=== PATIENT | male | born 1980 | race American Indian/Alaskan Native ===

== ENCOUNTER 2017-08-15 00:44 | Emergency (ER) | payer SELFPAY ==
[2017-08-15] MEDS ORDERED: NACL 0.9% 1000 ML 1,000 ML IV ONE (01:00)
[2017-08-15] MEDS ORDERED: ASPIRIN PO ONE (01:00)
--- NOTE | 2017-08-15 01:06 | Emergency Department Report ---
ED Chest Pain HPI - General Stated Complaint: POSS STEMI Time Seen by Provider: 08/15/17 01:00 - History of Present Illness Initial Comments: Patient is a 36-year-old male with past medical history of hypertension. Patient brought by EMS after he started to have left-sided chest pain while he was smoking weed per patient report. EMS stated that patient was very diaphoretic when examined. With the low blood pressure. Patient rated his chest pain as 5 out of 10 he stated that is getting better now. Pain is a heaviness and tightness. Associated with shortness of breath. MD Complaint: chest pain -: Sudden - Related Data Allergies Allergy/AdvReac Type Severity Reaction Status Date / Time No Known Allergies Allergy Unverified 08/15/17 01:11 Heart Score - HEART Score History: Moderately suspicious EKG: Non-specific Age: < 45 Risk factors: 1-2 risk factors Troponin: < normal limit HEART Score: 3 - Critical Actions Critical Actions: 0-3 pts:0.9-1.7%risk of adverse cardiac event.Candidate for discharge ED Review of Systems ROS: Stated complaint: POSS STEMI Other details as noted in HPI Comment: All other systems reviewed and negative Constitutional: denies: chills, fever Respiratory: denies: cough, orthopnea, shortness of breath, SOB with exertion, SOB at rest Cardiovascular: chest pain. denies: palpitations, dyspnea on exertion, orthopnea Gastrointestinal: denies: abdominal pain, nausea, vomiting, diarrhea, constipation, hematemesis, melena, hematochezia Genitourinary: denies: urgency, dysuria, frequency, hematuria Neurological: denies: headache, weakness, numbness, paresthesias ED Past Medical Hx - Past Medical History Hx Hypertension: Yes ED Physical Exam - General Limitations: No Limitations General appearance: alert, in no apparent distress - Head Head exam: Present: atraumatic, normocephalic, normal inspection - ENT ENT exam: Present: normal exam, normal orophraynx, mucous membranes moist - Neck Neck exam: Present: normal inspection, full ROM. Absent: tenderness, meningismus - Respiratory Respiratory exam: Present: normal lung sounds bilaterally. Absent: respiratory distress, wheezes, rales, rhonchi, stridor, chest wall tenderness, accessory muscle use, decreased breath sounds, prolonged expiratory - Cardiovascular Cardiovascular Exam: Present: regular rate, normal rhythm, normal heart sounds - GI/Abdominal GI/Abdominal exam: Present: soft, normal bowel sounds. Absent: distended, tenderness, guarding, rebound, rigid, organomegaly, mass, bruit, pulsatile mass - Extremities Exam Extremities exam: Present: normal inspection, full ROM, normal capillary refill - Back Exam Back exam: Present: normal inspection, full ROM. Absent: tenderness, CVA tenderness (R), CVA tenderness (L), muscle spasm, paraspinal tenderness, vertebral tenderness - Neurological Exam Neurological exam: Present: alert, oriented X3, CN II-XII intact - Skin Skin exam: Present: warm, intact, normal color ED Course Vital Signs 08/15/17 08/15/17 08/15/17 01:08 02:21 02:30 Temperature 98.1 F Pulse Rate 84 83 84 Respiratory 20 15 15 Rate Blood Pressure 92/74 128/69 128/69 O2 Sat by Pulse 100 99 99 Oximetry 08/15/17 08/15/17 08/15/17 02:45 03:00 03:10 Temperature Pulse Rate 84 83 Respiratory 14 14 20 Rate Blood Pressure 113/68 129/76 O2 Sat by Pulse 99 99 98 Oximetry 08/15/17 08/15/17 08/15/17 04:01 05:00 06:00 Temperature Pulse Rate 80 84 82 Respiratory 12 15 12 Rate Blood Pressure 115/65 130/72 117/81 O2 Sat by Pulse 99 98 99 Oximetry 08/15/17 08/15/17 07:01 08:01 Temperature Pulse Rate 75 85 Respiratory 15 14 Rate Blood Pressure 113/70 113/70 O2 Sat by Pulse 99 Oximetry ED Medical Decision Making - Lab Data Result diagrams: 08/15/17 01:24 08/15/17 01:24 - EKG Data -: EKG Interpreted by Ny EKG shows normal: sinus rhythm Rate: normal - EKG Data Interpretation: no acute changes - Radiology Data Radiology results: report reviewed Referring Physician: KRISTI SORIANO Patient Name: SULTANA MOELLER Date of : 1980 Sex: Male Report Date: 2017-08-15 Report Status: Finalized Findings [facility] [address] [place] [address] XRay Report Signed Patient: SULTANA MOELLER MR#: [id number] : 1980 Acct:[id number] Age/Sex: 36 / M ADM Date: 08/15/17 Loc: ED Attending Dr: Ordering Physician: KRISTI SORIANO Date of Service: 08/15/17 Procedure(s): XR chest 1V ap Accession Number(s): [id number] cc: KRISTI SORIANO Fluoro Time In Minutes: FINAL REPORT EXAM: XR CHEST 1V AP HISTORY: Chest Pain COMPARISON: None available. FINDINGS: Frontal view(s) of the chest obtained. Heart upper limits normal in size and accentuated by shallow inspiration and portable AP technique. Crowding of the bronchovascular markings. No gross consolidation or effusion. No pneumothorax. IMPRESSION: Shallow inspiration. No gross focal consolidation. Transcribed By: LMA Dictated By: TILA TALBERT MD Electronically Authenticated By: TILA TALBERT MD Signed Date/Time: 08/15/17213 DD/ 3 TD/TT: 08/15/17213 - Medical Decision Making Patient stated that he is feeling much better. Patient is alert and oriented 3. Cardiac workup came back completely negative. Patient advised to follow-up with his primary care physician in the next 2-3 days. I also advised him to return to the ER if his symptoms came back. Critical care attestation.: If time is entered above; I have spent that time in minutes in the direct care of this critically ill patient, excluding procedure time. ED Disposition Clinical Impression: Chest pain, Substance abuse Disposition: DC-01 TO HOME OR SELFCARE Is pt being admited?: No Condition: Stable Instructions: Chest Pain (ED), Polysubstance Abuse (ED) Referrals: IZAIAH LINARES MD [Primary Care Provider] - 3-5 Days
[2017-08-15 01:35] LABS: Basophils # (Auto) 0.2 K/mm3 (0.0-0.1); Eosinophils # (Auto) 0.4 K/mm3 (0.0-0.4); Eosinophils % (Auto) 2.7 % (0.0-4.3); Hematocrit 47.8 % (35.5-45.6); Hemoglobin 16.6 gm/dl (11.8-15.2); Lymphocytes # (Auto) 2.2 K/mm3 (1.2-5.4); Mean Corpuscular HGB Conc 35 % (32-34); Mean Corpuscular Hemoglobin 31 pg (28-32); Mean Corpuscular Volume 90 fl (84-94); Monocytes # (Auto) 1.4 K/mm3 (0.0-0.8); Platelet Count 221 K/mm3 (140-440); Red Blood Count 5.32 M/mm3 (3.65-5.03); Red Cell Distribution Width 14.1 % (13.2-15.2)
[2017-08-15 01:42] LABS: Bilirubin,Urine NEG (Negative); Blood,Urine NEG (Negative); Color,Urine Yellow (Yellow); Hyaline Casts,Urine 1 /LPF; Mucus,Urine FEW /HPF; Protein,Urine <15 mg/dL mg/dL (Negative); Urobilinogen,Urine < 2.0 mg/dL (<2.0)
[2017-08-15 01:46] LABS: INR 0.96 (0.87-1.13)
[2017-08-15 01:47] LABS: Partial Thromboplastin Time 28.3 Sec. (24.2-36.6)
[2017-08-15 01:50] LABS: Amphetamine Screen,Urine PRESUMPTIVE NEGATIVE; Benzodiazepines Screen,Urine PRESUMPTIVE NEGATIVE; Cocaine Screen,Urine PRESUMPTIVE NEGATIVE; Methadone Screen,Urine PRESUMPTIVE NEGATIVE; Opiate Screen,Urine PRESUMPTIVE NEGATIVE
[2017-08-15 01:55] LABS: Alanine Aminotransferase 32 units/L (7-56); Albumin 4.2 g/dL (3.9-5); BUN/Creatinine Ratio 16; Blood Urea Nitrogen 36 mg/dL (9-20); Calcium 9.2 mg/dL (8.4-10.2); Hemolysis Index 45
[2017-08-15 02:10] LABS: Cannabinoid Screen,Urine PRESUMPTIVE POSITIVE
--- NOTE | 2017-08-15 02:19 | XRay Report ---
FINAL REPORT EXAM: XR CHEST 1V AP HISTORY: Chest Pain COMPARISON: None available. FINDINGS: Frontal view(s) of the chest obtained. Heart upper limits normal in size and accentuated by shallow inspiration and portable AP technique. Crowding of the bronchovascular markings. No gross consolidation or effusion. No pneumothorax. IMPRESSION: Shallow inspiration. No gross focal consolidation.
[2017-08-15 09:07] VITALS: BP 113/70
== END 2017-08-15 09:00 | disposition home or self-care (01) ==
LOC: ED 00:44
DX: R07.89 Other chest pain (principal); F19.10 Other psychoactive substance abuse, uncomplicated; I10 Essential (primary) hypertension
CPT/HCPCS: 36415; 71045; 80053; 80307; 81001; 84484; 85025; 85379; 85610; 85730; 93005; 93010; 96360; 99285; J7030

== ENCOUNTER 2021-11-25 01:05 | Emergency (ER) | payer SELFPAY ==
[2021-11-25] MEDS ORDERED: hydrALAZINE 20 MG/1 ML INJ IV ONE ×2 (06:16→10:51)
[2021-11-25] MEDS ORDERED: MORPHINE 4 MG/1 ML INJ IV ONE (06:16)
[2021-11-25 06:37] LABS: BUN/Creatinine Ratio 9; Basophils % (Auto) 0.2 % (0.0-1.8); Blood Urea Nitrogen 11 mg/dL (9-20); Calcium 9.4 mg/dL (8.4-10.2); Eosinophils % (Auto) 0.4 % (0.0-4.3); Hematocrit 48.3 % (35.5-45.6); Hemoglobin 16.1 gm/dl (11.8-15.2); Hemolysis Index 4; Lymphocytes # (Auto) 0.9 K/mm3 (1.2-5.4); Lymphocytes % (Auto) 8.3 % (13.4-35.0); Mean Corpuscular HGB Conc 33 % (32-34); Mean Corpuscular Volume 93 fl (84-94); Monocytes # (Auto) 0.4 K/mm3 (0.0-0.8); Monocytes % (Auto) 3.2 % (0.0-7.3); Platelet Count 210 K/mm3 (140-440); Red Blood Count 5.18 M/mm3 (3.65-5.03); Red Cell Distribution Width 14.4 % (13.2-15.2)
[2021-11-25] MEDS ORDERED: SODIUM CHLORIDE 0.9% 1000 ML 1,000 ML IV ONE (06:45)
--- NOTE | 2021-11-25 06:48 | Emergency Department Report ---
ED Syncope HPI - General Chief Complaint: High BP Stated Complaint: HEADACHE/VOMITING/HTN Time Seen by Provider: 11/25/21 06:14 Source: patient - History of Present Illness Initial Comments: Patient is a 41-year-old male brought in by EMS with complaint of fatigue, nausea and vomiting with syncopal spell. States this occurred yesterday while he was outside riding his bike. States that heat and humidity were extremely high. States he feels that he may be dehydrated as well and complains of headache. - Related Data Allergies/Adverse Reactions: Allergies No Known Allergies Allergy (Unverified 08/15/17 01:11) ED Review of Systems ROS: Stated complaint: HEADACHE/VOMITING/HTN Other details as noted in HPI Constitutional: other (Fatigue) Respiratory: denies: cough, shortness of breath, wheezing Cardiovascular: denies: chest pain, palpitations Gastrointestinal: nausea, vomiting. denies: abdominal pain, diarrhea Musculoskeletal: denies: back pain, joint swelling, arthralgia Skin: denies: rash, lesions Neurological: headache Psychiatric: denies: anxiety, depression ED Past Medical Hx - Past Medical History Previous Medical History?: Yes Hx Hypertension: Yes Hx Asthma: Yes Additional medical history: Morbid Obesity - Surgical History Past Surgical History?: Yes Additional Surgical History: R knee - Social History Smoking Status: Current Every Day Smoker Substance Use Type: Marijuana ED Physical Exam - General Limitations: No Limitations General appearance: alert, lethargic - Head Head exam: Present: atraumatic, normocephalic - Respiratory Respiratory exam: Present: normal lung sounds bilaterally. Absent: respiratory distress - Cardiovascular Cardiovascular Exam: Present: regular rate, normal rhythm, normal heart sounds - GI/Abdominal GI/Abdominal exam: Present: soft. Absent: distended, tenderness - Rectal Rectal exam: Present: deferred - Neurological Exam Neurological exam: Present: alert, oriented X3 - Psychiatric Psychiatric exam: Present: normal affect, normal mood - Skin Skin exam: Present: warm, dry, intact, normal color ED Course Vital Signs 11/25/21 11/25/21 11/25/21 01:11 04:45 07:14 Temperature 98.6 F Pulse Rate 64 62 64 Respiratory 18 18 Rate Blood Pressure 186/100 212/120 Blood Pressure 212/120 [Left] O2 Sat by Pulse 100 97 Oximetry 11/25/21 11/25/21 11/25/21 10:21 10:57 11:50 Temperature Pulse Rate 67 84 Respiratory 16 16 Rate Blood Pressure 213/110 Blood Pressure 214/134 199/108 [Left] O2 Sat by Pulse 96 96 Oximetry ED Medical Decision Making - Lab Data Result diagrams: 11/25/21 05:34 11/25/21 05:34 - Medical Decision Making BMP unremarkable. Patient was given 1 L saline bolus along with IV morphine for headache. He was also given hydralazine and clonidine for his hypertension. EKG shows sinus rhythm with no acute ischemic findings. Suspect likely heat exhaustion. I discussed results with patient. He is stable for discharge home with return precautions. Critical care attestation.: If time is entered above; I have spent that time in minutes in the direct care of this critically ill patient, excluding procedure time. ED Disposition Clinical Impression: Syncope, Heat exhaustion, Hypertension Disposition: 01 HOME / SELF CARE / HOMELESS Is pt being admited?: No Condition: Stable Instructions: Syncope (ED), Heat Exhaustion, Syncope, [id number], Hypertension (ED), Hypertension, Adult Time of Disposition: 11:54
--- NOTE | 2021-11-25 11:24 | Electrocardiograph Report ---
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
[2021-11-25] MEDS ORDERED: cloNIDine 0.2 MG TAB PO ONE (11:51)
[2021-11-25] MEDS ORDERED: ONDANSETRON 4 MG/2 ML INJ IV ONE (12:02)
--- NOTE | 2021-11-25 13:21 | Cat Scan Report ---
CT HEAD WITHOUT CONTRAST INDICATION / CLINICAL INFORMATION: Headache, nausea/vomiting. TECHNIQUE: All CT scans at this location are performed using CT dose reduction for ALARA by means of automated exposure control. COMPARISON: None available. FINDINGS: HEMORRHAGE: None. EXTRA-AXIAL SPACES: Normal in size and morphology for the patient's age. VENTRICULAR SYSTEM: Normal in size and morphology for the patient's age. CEREBRAL PARENCHYMA: No significant abnormality. No acute territorial infarct. MIDLINE SHIFT / HERNIATION: None. CEREBELLUM / BRAINSTEM: No significant abnormality. ORBITS: Normal as visualized. SOFT TISSUES: No significant abnormality. SKULL: No significant abnormality. PARANASAL SINUSES / MASTOID AIR CELLS: Normal as visualized. ADDITIONAL FINDINGS: Enlarged left postauricular lymph nodes measuring up to 1.4 cm in short axis as seen on axial series 2 image 12. IMPRESSION: 1. No acute intracranial abnormality. 2. Enlarged left postauricular lymph nodes of uncertain etiology. Signer Name: Jean Pierre Bean MD Signed: 11/25/2021 1:17 PM Workstation Name: [id number]
[2021-11-25 14:44] VITALS: BP 188/103
--- NOTE | 2021-11-26 10:36 | Electrocardiograph Report ---
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
== END 2021-11-25 14:44 | disposition home or self-care (01) ==
LOC: ED 01:05
DX: T67.5XXA Heat exhaustion, unspecified, initial encounter (principal); I10 Essential (primary) hypertension; R55 Syncope and collapse; J45.909 Unspecified asthma, uncomplicated; F17.200 Nicotine dependence, unspecified, uncomplicated; F12.90 Cannabis use, unspecified, uncomplicated; Z79.899 Other long term (current) drug therapy; X58.XXXA Exposure to other specified factors, initial encounter; Y93.89 Activity, other specified; Y92.89 Other specified places as the place of occurrence of the external cause; Y99.8 Other external cause status
CPT/HCPCS: 36415; 70450; 80048; 85025; 93005; 96361; 96374; 96375; 96376; 99285; J0360; J2270; J2405; J7030; 99284